=== PATIENT | male | born 1970 ===

== ENCOUNTER 2016-10-18 06:29 | Emergency (ER) ==
--- NOTE | 2016-10-18 14:33 | EKG REPORT ---
SEVERITY:- ABNORMAL ECG - SINUS RHYTHM LEFT VENTRICULAR HYPERTROPHY ST ELEV, PROBABLE NORMAL EARLY REPOL PATTERN : Confirmed by: Akin Rondon 18-Oct-2016 14:32:40
== END 2016-10-18 07:27 | disposition left against medical advice (07) ==
LOC: ER 06:29
DX: Z53.21 Procedure and treatment not carried out due to patient leaving prior to being seen by health care provider (principal)
CPT/HCPCS: 93005; 93010